=== PATIENT | male | born 1945 | race Caucasian/White ===

== ENCOUNTER 2019-04-25 15:02 | Inpatient (IN) ==
[2019-04-25] MEDS ORDERED: ZOFRAN IV PRN (16:06)
[2019-04-25] MEDS ORDERED: DUONEB (A & A) INH PRN (16:07)
[2019-04-25] MEDS ORDERED: SALINE LOCK IV FLUID XX ONE (16:32)
--- NOTE | 2019-04-25 16:52 | EKG Report ---
Test Performed on : 04/25/2019 4:26:19 PM Test Reason : STAT Blood Pressure : / mmHG Vent. Rate : 087 BPM Atrial Rate : 277 BPM P-R Int : 000 ms QRS Dur : 072 ms QT Int : 340 ms P-R-T Axes : 000 -52 081 degrees QTc Int : 409 ms Atrial flutter. with variable AV block. Left axis deviation Cannot rule out Anterior infarct , age undetermined Abnormal ECG No previous ECGs available Unconfirmed Result
[2019-04-25 17:28] LABS: BASO# 0.04 X1000 (0.0-0.2); BASO% 0.3 % (0.0-0.8); EOS# 0.56 X1000 (0.0-0.7); EOS% 4.1 % (0.0-10.0); HEMATOCRIT 37.7 % (42.0-52.0); HEMOGLOBIN 12.5 g/dL (14.0-18.0); IMM GRAN# 0.04 X1000 (0.0-0.04); IMM GRAN% 0.3 % (0.0-0.5); LYMPH# 1.74 X1000 (1.2-3.4); LYMPH% 12.8 % (20.5-51.1); MCH 28.2 PG (27-31); MCHC 33.2 g/dL (33-37); MCV 84.9 FL (81-99); MONO# 1.97 X1000 (0.11-0.59); MONO% 14.5 % (1.7-9.3); MPV 9.2 FL (7.4-10.4); PLT 239 X1000 (130-400); RBC 4.44 XMIL (4.7-6.1); RDW 16.3 % (11.5-14.5); WBC 13.55 X1000 (4.8-10.8)
[2019-04-25 17:54] LABS: ESTIMATED GFR > 60
[2019-04-25 17:56] LABS: AGAP 11; ALBUMIN 4.2 g/dL (3.5-5.0); ALKALINE PHOSPHATASE 88 U/L (32-122); BUN 16 mg/dL (8-22); CALCIUM 9.5 mg/dL (8.8-10.2); CHLORIDE 89 mmol/L (98-107); CK PROFILE 78 U/L (24-204); COSMO 261; CREATININE 0.9 mg/dL (0.7-1.2); GLUCOSE 143 mg/dL (70-104); GOT 11 U/L (10-34); GPT 11 U/L (10-44); MAGNESIUM 1.7 mg/dL (1.5-2.7); POTASSIUM 4.9 mmol/L (3.5-5.1); SODIUM 128 mmol/L (136-145); TCO2 29 mmol/L (25-35); TOTAL PROTEIN 7.5 g/dL (6.3-8.3)
--- NOTE | 2019-04-25 18:48 | HISTORY AND PHYSICAL ---
ADDENDUM: CHIEF COMPLAINT: Shortness of breath. Patient seen and examined by myself. Full note dictated and discussed with nurse practitioner. Patient was a direct admit from his primary care office. The patient is noted to have a low sodium. Apparently, he has a heavy alcohol use history. He is also on Zyprexa which can drop his sodium, as well as Lasix. We will admit him to the hospital. We will begin his workup. We will hold his Zyprexa. Continue Lasix as he is having some swelling. We will treat him for his constipation and will follow. Please see full note. cc: Dmitri Ludwig MD
[2019-04-25] MEDS: DUONEB (A & A) INH SCH ×2 (19:08→22:58)
--- NOTE | 2019-04-25 19:11 | HISTORY AND PHYSICAL ---
PRIMARY CARE PHYSICIAN: Dr. Diggs. NOVELTY CHAIN MAKER: Dr. Fernando Rodrigues. CHIEF COMPLAINT: Generalized weakness and body aches and wheezing. HISTORY OF PRESENT ILLNESS: This is a 73-year-old gentleman with a history of insulin-dependent diabetes mellitus, COPD, hypothyroid and congestive heart failure. He presents as a direct admit from Dr. Rodrigues's office complaining of about 2 weeks of increasing shortness of breath with activity, increasing generalized weakness and frequent falls. He states that his legs are weak, and when he stands, it just feels like they are not going to hold his body up secondary to pain. This has been an ongoing problem, although he feels like the body aches have exacerbated. He does state that over the last 2 to 3 days he has developed a cough that has become productive over the last 24 hours, and secretions have gone from clear to thick white. He does report a weight gain, although he is not clear on how many pounds. He just knows that "I weigh more now because I am blown up." PAST MEDICAL HISTORY: Insulin-dependent diabetes mellitus, hypertension, COPD, gastroesophageal reflux disease with Chen esophagus, hypothyroidism, BPH, congestive heart failure. SOCIAL HISTORY: He is . Lives with his . He does not smoke. He drinks beers daily, around 2 to 4 daily along with Bacardi at intervals. He denies any illicit drug use. ALLERGIES: No known drug allergies. HOME MEDICATIONS: A list will be obtained by the nursing staff and once verified, will be restarted as appropriate. REVIEW OF SYSTEMS: Discussed with the patient with pertinent positives as stated in the HPI. He denies any syncope or dizziness, any chest pain or palpitations, any PND, any nausea, vomiting, diarrhea, constipation, black or bloody vomitus or stools, any hematuria or dysuria. PHYSICAL EXAMINATION: GENERAL: This is a 73-year-old gentleman who is sitting up in the bed in no distress. VITAL SIGNS: Blood pressure is 152/54 with a heart rate of 90. Respirations are 20, temperature is 99.6 oral with room air saturations 97%. EYES: Pupils are equal, round, reactive to light. EOMs are intact. Sclerae anicteric. HEENT: Head is normocephalic, atraumatic. Mucous membranes are moist. NECK: Supple with trachea midline. CARDIOVASCULAR: Irregularly irregular rate and rhythm. S1 and S2 are appreciated. He has bilateral pitting edema up to about mid thigh with peripheral pulses palpable x4 extremities. MUSCULOSKELETAL: He does have chronic back and leg pain. PULMONARY: Breath sounds. He has wheezes scattered throughout with prolonged expiration. Chest rises and falls symmetrically with respiration. Chest wall is nontender to palpation. He does have bilateral crackles noted in the bases. GASTROINTESTINAL: Abdomen is large, soft, nondistended, nontender with bowel sounds in all 4 quadrants. : He has no CVA or suprapubic tenderness. NEUROLOGIC: He is alert oriented x3. SKIN: Warm and dry. LABS: WBC is 13.5 with hemoglobin 12.5, hematocrit 37.7, and platelets of 239. Sodium is 128, potassium 4.9, BUN 16, creatinine 0.9 with a glucose of 143. Troponin is negative with a CPK of 78. ASSESSMENT AND PLAN: 1. Congestive heart failure exacerbation. Will give Lasix 40 mg b.i.d., monitor strict I O, daily weights. Will identify his home medications. 2. Atrial fibrillation/flutter. This is chronic. The patient is on no anticoagulation at present due to frequent falls. He is followed by Dr. Fernando Rodrigues. We will identify his home medications and continue. At present, rate is controlled. 3. Hyponatremia. 4. Insulin-dependent diabetes mellitus. Pattern blood glucose with sliding scale insulin. 5. Hypothyroid. Will check a TSH, identify his home medication. 6. Chronic obstructive pulmonary disease. We will give DuoNeb every 4 hours and every 2 hours p.r.n. Give supplemental oxygen as needed. 7. Leukocytosis. This could very well be secondary to pneumonia, as his symptoms have had progressed over the last few days. We will get a PA and lateral chest x-ray, get blood cultures. In the setting of leukocytosis with symptoms and a fever, will start azithromycin and Rocephin, and further antibiotics will be culture driven. 8. Gastroesophageal reflux disease. We will identify his home proton pump inhibitor and continue. 9. History of benign prostatic hypertrophy. Continue his Flomax. 10. Chronic back pain. We will continue his [place] every 6 hours p.r.n. 11. Daily alcohol use and abuse. We will monitor for any signs of withdrawal. He does take Ativan 1 mg p.o. 3 times a day. We will continue this and monitor. 12. Further treatments pending hospital course. Dictated by DOREEN Peterson for Dmitri Ludwig MD cc: DOREEN Peterson MD
[2019-04-25] MEDS: HUMALOG (PARKWAY) SUBQ SCH (20:53)
[2019-04-25] MEDS: LASIX IV SCH (20:56)
[2019-04-25] MEDS: ROCEPHIN 1 GM in NS 50 ML IV SCH (20:56)
[2019-04-25] MEDS: ATIVAN PO SCH (20:57)
[2019-04-26] MEDS: TYLENOL PO PRN ×2 (00:35→18:11)
[2019-04-26] MEDS: ZITHROMAX PO SCH ×2 (00:35→09:06)
[2019-04-26] MEDS: DUONEB (A & A) INH SCH ×6 (03:04→23:07)
[2019-04-26 05:58] LABS: BASO# 0.03 X1000 (0.0-0.2); BASO% 0.3 % (0.0-0.8); EOS% 4.4 % (0.0-10.0); HEMATOCRIT 37.4 % (42.0-52.0); HEMOGLOBIN 12.2 g/dL (14.0-18.0); IMM GRAN# 0.04 X1000 (0.0-0.04); IMM GRAN% 0.4 % (0.0-0.5); LYMPH# 2.13 X1000 (1.2-3.4); LYMPH% 18.7 % (20.5-51.1); MCH 27.7 PG (27-31); MCHC 32.6 g/dL (33-37); MPV 9.1 FL (7.4-10.4); NEUT# 6.32 X1000 (1.4-6.5); NEUT% 55.2 % (42.2-75.2); PLT 211 X1000 (130-400); RDW 16.4 % (11.5-14.5); WBC 11.42 X1000 (4.8-10.8)
[2019-04-26 06:01] LABS: BASO 1 % (0-1); EOS 6 % (1-10); LYMPHS 20 % (21-51); MONO 18 % (1-9); SEGS 55 % (42-75)
[2019-04-26 06:05] LABS: AGAP 12; ALBUMIN 3.8 g/dL (3.5-5.0); ALKALINE PHOSPHATASE 74 U/L (32-122); BUN 15 mg/dL (8-22); CALCIUM 9.2 mg/dL (8.8-10.2); CHLORIDE 93 mmol/L (98-107); COSMO 272; CREATININE 0.9 mg/dL (0.7-1.2); ESTIMATED GFR > 60; GLUCOSE 147 mg/dL (70-104); GOT 10 U/L (10-34); GPT 11 U/L (10-44); POTASSIUM 4.2 mmol/L (3.5-5.1); SODIUM 134 mmol/L (136-145); TCO2 29 mmol/L (25-35)
[2019-04-26] MEDS: HUMALOG (PARKWAY) SUBQ SCH ×4 (06:20→20:51)
[2019-04-26] MEDS: LASIX IV SCH ×2 (06:23→18:02)
--- NOTE | 2019-04-26 07:35 | Diag Imaging Result Doc PS360 ---
EXAM: CHEST-PORTABLE - 04/26/2019 HISTORY: PNA TECHNIQUE: Portable chest COMPARISON: 02/23/2019 FINDINGS: Heart size is normal. There is mild prominence of interstitial markings, and there is mild peribronchial cuffing. The possibility of bronchitis and/or interstitial pneumonitis cannot be excluded. There is no dense consolidation, pleural effusion, or pneumothorax identified. IMPRESSION: Possible bronchitis and/or interstitial pneumonitis. No discrete focal pneumonia. Electronically signed by Nas Lerner 04/26/2019 7:33 AM
--- NOTE | 2019-04-26 07:58 | EKG Report ---
Test Performed on : 04/26/2019 06:01:58 AM Test Reason : CHF, dyspnea Blood Pressure : / mmHG Vent. Rate : 083 BPM Atrial Rate : 066 BPM P-R Int : 000 ms QRS Dur : 084 ms QT Int : 368 ms P-R-T Axes : 000 -52 061 degrees QTc Int : 432 ms Atrial fibrillation. Left axis deviation Inferior infarct (cited on or before 25-APR-2019) Abnormal ECG When compared with ECG of 26-APR-2019 06:01, (Unconfirmed) Nonspecific T wave abnormality now evident in Inferior leads Unconfirmed Result
[2019-04-26] MEDS ORDERED: SYNTHROID PO SCH (09:00)
[2019-04-26] MEDS: BENICAR PO SCH (09:06)
[2019-04-26] MEDS: FLEXERIL PO SCH (09:06)
[2019-04-26] MEDS: ALLEGRA PO SCH (09:06)
[2019-04-26] MEDS: CELEXA PO SCH (09:07)
[2019-04-26] MEDS: ATIVAN PO SCH ×3 (09:07→20:47)
[2019-04-26] MEDS: FLOMAX PO SCH (09:07)
[2019-04-26] MEDS: ADALAT CC PO SCH (09:07)
[2019-04-26] MEDS: SYNTHROID PO SCH ×2 (09:07)
[2019-04-26] MEDS: PRILOSEC PO SCH (09:08)
[2019-04-26] MEDS: LEVEMIR INSULIN *HA INJ SCH ×2 (09:08→20:52)
[2019-04-26] MEDS ORDERED: MIRALAX PO ONE (16:36)
[2019-04-26] MEDS ORDERED: AMITIZA PO SCH (16:45)
[2019-04-26] MEDS: ROCEPHIN 1 GM in NS 50 ML IV SCH (18:02)
[2019-04-26] MEDS ORDERED: NORCO-5 PO PRN (18:25)
--- NOTE | 2019-04-26 19:51 | PROGRESS NOTE ---
DATE: 04/26/2019 SUBJECTIVE: Patient notes he is having right leg pain, right side pain although this has been going on for several weeks, not really changed. Denies any fevers or chills. PHYSICAL EXAMINATION: Vital Signs: Temperature 97.9, pulse 101, respiratory rate 18, and BP 151/71. General: Patient is in no current respiratory distress. He is awake, alert, and oriented. HEENT: Normocephalic. Neck: Supple. Cardiovascular: Regular rate. Lungs: Chest clear and nonlabored. Abdomen: Soft. Extremities: Moves all extremities. Neurologic: No changes. ASSESSMENT: 1. Congestive heart failure. Continue Lasix today, and then hopefully can transition over to p.o. Lasix and possibly home tomorrow. 2. Atrial fibrillation and atrial flutter, chronic. 3. Hyponatremia. Sodium is actually improved at 134. 4. Insulin-dependent diabetes. 5. Hypothyroidism. 6. COPD, stable. Continue DuoNeb nebs. PLAN: Overall, patient has improved. Hopefully, he will continue to improve and possibly even discharge home in the next 1 to 2 days. cc: Dmitri Ludwig MD
[2019-04-26] MEDS ORDERED: AMBIEN PO SCH (21:00)
[2019-04-27] MEDS: DUONEB (A & A) INH SCH ×2 (02:58→08:03)
[2019-04-27] MEDS: LASIX IV SCH (05:40)
[2019-04-27] MEDS: SYNTHROID PO SCH ×4 (05:40→06:38)
[2019-04-27] MEDS: PRILOSEC PO SCH (06:33)
[2019-04-27] MEDS: HUMALOG (PARKWAY) SUBQ SCH ×2 (06:35→10:37)
[2019-04-27 07:31] VITALS: BP 127/68
[2019-04-27] MEDS ORDERED: AMITIZA PO SCH (08:00)
[2019-04-27] MEDS: CELEXA PO SCH (08:37)
[2019-04-27] MEDS: FLEXERIL PO SCH (08:38)
[2019-04-27] MEDS: ADALAT CC PO SCH (08:38)
[2019-04-27] MEDS: ZITHROMAX PO SCH (08:38)
[2019-04-27] MEDS: FLOMAX PO SCH (08:38)
[2019-04-27] MEDS: BENICAR PO SCH (08:38)
[2019-04-27] MEDS: ALLEGRA PO SCH (08:38)
[2019-04-27] MEDS: ATIVAN PO SCH (08:39)
[2019-04-27] MEDS: LEVEMIR INSULIN *HA INJ SCH (08:39)
[2019-04-27] MEDS ORDERED: MIRALAX PO SCH (09:00)
[2019-04-27] MEDS ORDERED: ZYPREXA PO SCH (09:00)
[2019-04-27] MEDS ORDERED: LASIX PO SCH (09:00)
--- NOTE | 2019-04-28 03:36 | DISCHARGE SUMMARY ---
ADMISSION DATE: 04/25/2019 DISCHARGE DATE: 04/27/2019 DISCHARGE DIAGNOSIS: 1. Chronic right-sided and right hip pain. 2. Congestive heart failure with mild exacerbation, improved. 3. Atrial fibrillation, chronic. 4. Insulin-dependent diabetes. 5. Hyponatremia, improved. 6. Hypothyroidism. 7. Leukocytosis. 8. Probable pneumonia. CONSULTATIONS: None. PROCEDURES: None. BRIEF HOSPITAL COURSE: Patient is a 73-year-old male who has a history of chronic back and hip pain. Presented to the hospital increased cough, congestion, increased swelling, increased edema in his lower extremities. He was treated for congestive heart failure exacerbation. It was unclear as to whether he had pneumonia. Therefore, he was placed on antibiotics. He continued to improve. On discharge she is awake, alert. He is in no distress. He is afebrile. He is still having right hip and right-sided pain. DISPOSITION: We discussed with patient that he will be discharged home as his congestive heart failure and pneumonia both have improved. We will continue antibiotics and Lasix at home, prescriptions for both were given. Discussed with patient that he needs to follow up with primary care and possibly Orthopedics regarding his hip pain. DISCHARGE MEDICATIONS: Lasix 40 mg twice daily. Omnicef twice daily for 6 days. Azithromycin 250 daily for 3 days. Otherwise, no changes on his chronic home medications. cc: Dmitri Ludwig MD
== END 2019-04-27 11:42 | disposition home or self-care (01) | DRG 291 ==
LOC: P.DIRADM 15:02 → P.MEDSURG 15:49
PROVIDERS: ATTEND Family Medicine
CPT/HCPCS: 71010; 71045; 80053; 82550; 82948; 83735; 84443; 84484; 85025; 87040; 93005; 94640; 94761; 94799; A9270; J0696; J1815; J1940; XXXXX

== ENCOUNTER 2019-06-07 16:30 | Inpatient (IN) ==
--- NOTE | 2019-06-07 16:48 | PROVIDER DOCUMENTATION ---
HPI-General Adult - General Chief Complaint: Low Blood Sugar Stated Complaint: HYPOGYLCEMIA Time Seen by Provider: 06/07/19 16:45 Source: patient Allergies/Adverse Reactions: Patient Allergies Allergy/AdvReac Type Severity Reaction Status Date / Time No Known Allergies Allergy Verified 02/23/19 16:48 Home Medications: Home Medication List Medication Instructions Recorded Confirmed Last Taken Type Citalopram [Celexa] 1 tab PO DAILY 06/14/15 04/25/19 04/25/19 08:00 History Cyclobenzaprine HCl [Amrix] 15 mg PO DAILY 06/14/15 04/25/19 Unknown History Cyclobenzaprine [Flexeril] 10 mg PO DAILY 06/14/15 04/25/19 04/25/19 12:00 History Fexofenadine [Anna] 1 tab PO DAILY 06/14/15 04/25/19 04/25/19 08:00 History Hydrocodone/Acetaminophen [[place] 1 tab PO Q6HR PRN 06/14/15 04/25/19 04/24/19 08:00 History 5-325 Tablet] Insulin Detemir [Levemir Flextouch] 50 unit INJ BID 06/14/15 04/25/19 04/25/19 08:00 History Levothyroxine [Synthroid] 125 microgm PO DAILY 06/14/15 04/25/19 04/24/19 08:00 History Lorazepam [Ativan] 3 tab PO TID 06/14/15 04/25/19 04/25/19 21:14 History Lubiprostone [Amitiza] 24 mcg PO DAILY 06/14/15 04/26/19 1 Day Ago History ~06/13/15 Nifedipine [Procardia Xl] 60 mg PO DAILY 06/14/15 04/25/19 04/25/19 08:00 History Olanzapine [Zyprexa] 1 tab PO DAILY 06/14/15 04/25/19 04/23/19 08:00 History Olmesartan Medoxomil [Benicar] 1 tab PO DAILY 06/14/15 04/25/19 04/24/19 08:00 History Omeprazole [Prilosec] 20 mg PO DAILY 06/14/15 04/25/19 04/25/19 08:00 History Tamsulosin [Flomax] 0.4 mg PO DAILY 06/14/15 04/25/19 04/25/19 08:00 History Zolpidem [Ambien] 10 mg PO QHS 06/14/15 04/25/19 04/24/19 21:00 History Albuterol [Proventil] 4 mg PO Q4HR PRN #1 inhaler 06/16/15 04/25/19 04/24/19 14:00 Rx Prednisone 20 mg PO DAILY #3 tablet 06/16/15 04/25/19 04/25/19 21:00 Rx Azithromycin [Zithromax] 250 mg PO DAILY #4 tab 04/27/19 Unknown Rx CefDINIR [Omnicef] 300 mg PO BID #20 cap 04/27/19 Unknown Rx Furosemide [Lasix] 40 mg PO BID #60 tab 04/27/19 Unknown Rx - History of Present Illness -Gen Adult Nature of Presenting Problems: 73 YOM PRESENTS AFTER SYNCOPAL EPISODE WHILE PLAYING CARDS. UPON EMS ARRIVAL BG WAS NOTED TO BE 27. HE DOES HAVE A HX OF DM AND IS ON TOUJEO FOR DM. HE DENIES CP, FEVER, CHILLS, N/V/D. HE NOW REPORTS HE FEELS NORMAL Onset/Duration: reports: just prior to arrival Timing: reports: improving Context/Activities at Onset: reports: none Modifying Factors: improves with: eating Associated Symptoms: reports: diaphoresis (DURING EPISODE) Similar Symptoms Previously?: Yes Recently seen or treated by another doctor?: No - Diabetes Related Context Context: reports: low blood sugar Review of Systems - Adult - REVIEW OF SYSTEMS - ADULT Constitutional: reports: no symptoms reported. denies: see HPI, chills, fever, fatique, night sweats, weight gain, weight loss, other Eyes: reports: no symptoms reported. denies: see HPI, discharge, dry eyes, decreased vision, blurred vision, double vision, eye pain, redness, other Ears, Nose, Mouth & Throat: reports: no symptoms reported. denies: see HPI, ear discharge, ear pain, hearing loss, tinnitus, epistaxis, sinus problem, nose pain, loose teeth, mouth/dental pain, mouth swelling, hoarseness, throat pain, throat swelling, other Cardiovascular: reports: no symptoms reported. denies: see HPI, chest pain, edema, heart murmur, irregular heart rate, orthopnea, palpitations, poor circulation, PND, syncope, other Respiratory: reports: no symptoms reported. denies: see HPI, chronic cough, cough, dyspnea on exertion, excessive sputum production, hemoptysis, pleurisy, shortness of breath, wheezing, other Gastrointestinal: reports: no symptoms reported. denies: see HPI, abdominal jer n, hematemesis, constipation, diarrhea, difficulty swallowing, frequent heartburn, nausea, poor appetite, rectal bleeding, vomiting, other Genitourinary: reports: no symptoms reported. denies: see HPI, dysuria, discharge, frequency, flank pain, frequent UTI's, hematuria, hesitency, incontinence, urinary retention, urgency, other Musculoskeletal: reports: no symptoms reported. denies: see HPI, bone pain, back pain, frequent leg cramps, joint pain, joint swelling, muscle aches, muscle weakness, neck pain, other Integumentary: reports: no symptoms reported. denies: see HPI, hives, hair loss, itching, mole changes, nail changes, rash, skin sores/ulcer, skin thickening, other Neurological: reports: syncope (MACHINE SET UP). denies: no symptoms reported, see HPI, ataxia, dizziness/vertigo, headache/migraines, loss of balance, numbness, paresthesia, seizure, slurred speech, tremors, other Psychiatric: reports: no symptoms reported. denies: see HPI, anxiety, anti- depressant use, alcohol/drug dependence, depression, emotional problems, insomnia, panic attacks, suicidal thoughts, other Endocrine: reports: other (LOW BG PER EMS). denies: no symptoms reported, see HPI, change in skin pigment, excessive sweating, goiter, cold intolerance, heat intolerance, increased hunger, increased thirst, polyuria Hematologic/Lymphatic: reports: no symptoms reported. denies: see HPI, blood clots, easy bruising, low blood count, lymphedema, prolonged bleeding, swollen lymph nodes, transfusions, other Allergic/Immunologic: reports: no symptoms reported. denies: see HPI, allergic reactions, allergic rhinitis, asthma, eczema, food allergy, frequent infections, hay fever, hives, positive PPD, urticaria, other Past History - Adult - PAST MEDICAL HISTORY-ADULT Review of Records: reports: Nursing Assessment Review, Medications Reviewed - FAMILY HISTORY Family History: reviewed, not pertinent Physical Exam-General - PHYSICAL EXAM-ADULT Initial Vital Signs Reviewed: Yes - CONSTITUTIONAL General Appearance: appears well, alert, no apparent distress - EYES Eyes: PERRL/EOMI - HEAD, EARS, NOSE, MOUTH & THROAT HENMT: normocephalic/atraumatic, moist mucous membranes, normal ENT inspection - NECK Neck: non-tender, full range of motion - RESPIRATORY Respiratory: chest non-tender, lungs clear, normal breath sounds - CARDIOVASCULAR Cardiovascular: normal peripheral pulses, regular rate, rhythm - GASTROINTESTINAL (ABDOMEN) Abdominal Exam: normal bowel sounds, non tender, soft - LYMPHATIC Lymphatic: no adenopathy - MUSCULOSKELETAL Back Exam: normal inspection Extremity: normal range of motion, non-tender, normal gait, normal inspection - SKIN Integumentary: normal color, normal turgor, warm/dry - NEUROLOGIC Neurologic: grossly normal - PSYCHIATRIC Psych/Mental Status: normal mood/affect, oriented x 3 Progress - PLAN OF CARE/RESULTS Progress/Plan/Lab Results: Vital Signs - 8 hr 06/07/19 16:33 Temperature 97.5 F L Pulse Rate 62 Respiratory Rate 16 Blood Pressure 175/71 O2 Sat by Pulse Oximetry 92 L Orders Category Date Time Status FSBS [Finger Stick Blood Sugar (ED)] DIRECTED Care 06/07/19 16:46 Ordered Saline Loc NOW Care 06/07/19 16:[address] HEAD/C-SPINE W/O CONTRAST [CT] Stat Exams 06/07/19 16:46 Ordered CBC WITH ELECTRONIC DIFF [HEME] Stat Lab 06/07/19 16:46 Uncollected COMPREHENSIVE METABOLIC PANEL [CHEM] Stat Lab 06/07/19 16:46 Uncollected PROTIME WITH INR [COAG] Stat Lab 06/07/19 16:46 Uncollected PTT [COAG] Stat Lab 06/07/19 16:46 Uncollected EKG [EKG] Stat Ther 06/07/19 16:47 Ordered Result Diagrams: 06/07/19 16:56 06/07/19 16:56 - EKG 1 Time of EKG reading by physician:: 16:57 EKG Read and Signed by:: Zay Strickland EKG Interpretation (*Must complete 3 of following elements*): Abnormal Rate: 55 Rhythm: BS WITH 1ST AV BLOCK WITH PAC - CT/MRI 1 CT Study: Cervical Spine, Head Impression: See EMR Report (EXAM: CT HEAD/C-SPINE W/O CONTRAST 06/07/2019 HISTORY: SYNCOPE TECHNIQUE: This exam was performed using automated exposure control, adjustment of mA or kV according to patient size, and/or use of iterative reconstruction technique. COMMENT: Head: There are calcifications in the internal carotid arteries bilaterally. There are patchy lucencies in the subcortical and periventricular white matter of both hemispheres consistent with chronic microvascular disease. There is no evidence of bleed or abnormal extra- axial fluid collection. The visualized paranasal sinuses are clear. The calvarium is intact. Cervical spine: There is no evidence of acute fracture or subluxation. 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 There is no evidence of prevertebral soft tissue swelling. There is generalized disc space narrowing. Severe facet arthropathy is present at C2-3, C3-4, C4-5, C5-6, and C6-7 on the left and C2-3, C4-5, C5-6 and C6-7 on the left. IMPRESSION: Chr onic microvascular white matter changes. Severe degenerative facet disease bilaterally in the cervical spine. No evidence of acute disease. Electronically signed by Gordo Chacon 06/07/2019 6:17 PM) - CONSULTS/PCP/HOSPITALIST Notification #1 *Consult/PCP/Hospitalist*: DR GRIDER Time Discussed: 20:00 Consult Disposition: Admit Departure - Departure Date of Disposition Decision: 06/07/19 Time of Disposition Decision: 20:00 DIAGNOSIS: Hypoglycemia Disposition: ADMITTED INPATIENT 09 Certified Medical Emergency: Emergent Condition: Stable Referrals and Follow-Ups: Randy Diggs MD [Primary Care Provider] - - Critical Care Note This patient required my direct & personal management of CC.: No Attestation - Physician/ LASHA Attestation Patient care was provided by Advanced Practice Provider:: Yes Advanced Practice Provider:: Cass Garcia Advanced Practice Provider documentation review:: The Mid-level provider documentation, treatment plan and medical decision making was reviewed by the physician who agrees with all treatment and medical decision making by the MLP. The physician spent face to face time with patient:: No Advanced Practice Provider documentation review:: Supervising physician onsite and consulted in the evaluation and care of this patient. The physician did not have a face to face encounter with the patient.
[2019-06-07] MEDS ORDERED: D5 NS 1,000 ML IV ONE (17:05)
[2019-06-07] MEDS ORDERED: D50W SYRINGE IV ONE (17:05)
[2019-06-07 17:26] LABS: BASO# 0.02 X1000 (0.0-0.2); BASO% 0.2 % (0.0-0.8); EOS# 0.28 X1000 (0.0-0.7); EOS% 2.4 % (0.0-10.0); HEMOGLOBIN 13.5 g/dL (14.0-18.0); IMM GRAN# 0.05 X1000 (0.0-0.04); IMM GRAN% 0.4 % (0.0-0.5); LYMPH# 1.82 X1000 (1.2-3.4); LYMPH% 15.7 % (20.5-51.1); MCHC 33.8 g/dL (33-37); MONO# 1.47 X1000 (0.11-0.59); MONO% 12.7 % (1.7-9.3); MPV 8.9 FL (7.4-10.4); NEUT# 7.97 X1000 (1.4-6.5); NEUT% 68.6 % (42.2-75.2); PLT 255 X1000 (130-400); RBC 4.65 XMIL (4.7-6.1); RDW 15.8 % (11.5-14.5); WBC 11.61 X1000 (4.8-10.8)
[2019-06-07 17:33] LABS: INR 0.9; PROTIME 12.9 Seconds (11.0-16.0)
[2019-06-07 17:34] LABS: PTT 26.9 Seconds (22.3-41.8)
[2019-06-07 18:17] LABS: AGAP 12; ALB/GLOB RATIO 1.1; ALBUMIN 4.1 g/dL (3.5-5.0); ALKALINE PHOSPHATASE 92 U/L (32-122); BUN 14 mg/dL (8-22); CALCIUM 8.9 mg/dL (8.8-10.2); CHLORIDE 93 mmol/L (98-107); COSMO 266; ESTIMATED GFR > 60; GLUCOSE 44 mg/dL (70-104); GOT 18 U/L (10-34); GPT 20 U/L (10-44); POTASSIUM 3.7 mmol/L (3.5-5.1); SODIUM 134 mmol/L (136-145); TCO2 29 mmol/L (25-35); TOTAL BILIRUBIN 0.37 mg/dL (0.20-1.00); TOTAL PROTEIN 7.8 g/dL (6.3-8.3)
--- NOTE | 2019-06-07 18:19 | Diag Imaging Result Doc PS360 ---
EXAM: CT HEAD/C-SPINE W/O CONTRAST 06/07/2019 HISTORY: SYNCOPE TECHNIQUE: This exam was performed using automated exposure control, adjustment of mA or kV according to patient size, and/or use of iterative reconstruction technique. COMMENT: Head: There are calcifications in the internal carotid arteries bilaterally. There are patchy lucencies in the subcortical and periventricular white matter of both hemispheres consistent with chronic microvascular disease. There is no evidence of bleed or abnormal extra-axial fluid collection. The visualized paranasal sinuses are clear. The calvarium is intact. Cervical spine: There is no evidence of acute fracture or subluxation. 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 There is no evidence of prevertebral soft tissue swelling. There is generalized disc space narrowing. Severe facet arthropathy is present at C2-3, C3-4, C4-5, C5-6, and C6-7 on the left and C2-3, C4-5, C5-6 and C6-7 on the left. IMPRESSION: Chronic microvascular white matter changes. Severe degenerative facet disease bilaterally in the cervical spine. No evidence of acute disease. Electronically signed by Gordo Chacon 06/07/2019 6:17 PM
--- NOTE | 2019-06-07 20:08 | Diag Imaging Result Doc PS360 ---
EXAM: CHEST-2 VIEWS 06/07/2019 HISTORY: HYPOXIA TECHNIQUE: PA and lateral chest COMMENT: There is no evidence of acute cardiac or pulmonary disease. Compared to 04/26/2019 there has been no significant change. IMPRESSION: No evidence of acute disease. Electronically signed by Gordo Chacon 06/07/2019 8:05 PM
[2019-06-07] MEDS ORDERED: D10W 1,000 ML IV SCH ×2 (20:15→23:16)
--- NOTE | 2019-06-07 21:35 | HISTORY AND PHYSICAL ---
REASON FOR ADMISSION: Syncope 5 hours ago. HISTORY OF PRESENT ILLNESS: Mr. Pink is a 73-year-old man with past medical history type 2 diabetes on insulin. He also has a history of COPD, hypertension, BPH, hypothyroidism, reflux disease, mild alcoholic cirrhosis and heart failure with preserved EF. He comes in today for after passing out while playing cards. Prior to passing out, he became profoundly diaphoretic and very lethargic and slumped on the chair. His reports that she came back 30 minutes and he was still slumped, unresponsive, looked pale, cold and clammy. When the EMS came, they checked his blood sugar. It was 29. They hung a bag of fluid, name unknown per the . She did notice that after a few minutes, the patient started to stir while on the stretcher. When he got to the ER, he finally aroused and came to with no cognitive impairments. The patient says that other than feeling slightly weak, he denies any cardiorespiratory, gastrointestinal, genitourinary, or focal neurological complaints. No arthralgias or rash. No change in the dose of his insulin. His did report that the night before, his blood sugar was 50. The patient has not skipped any meals, but did not take any breakfast this morning. He only had a tomato sandwich a few hours prior to passing out. She denies any antecedent or cardiorespiratory complaints. No leg swelling. No erythema. REVIEW OF SYSTEMS: A 12 system review was performed. Positive findings noted as above. NEW MEDICATIONS: The patient denies any new medications prescribed. ALLERGIES: No allergies. HOME MEDICATIONS: Have not been reconciled. But the patient says he takes 50 units of Toujeo in the morning and 60 units in the evening. FAMILY HISTORY: Of diabetes, but no heart disease. SOCIAL HISTORY: Lives with his . Does not smoke, but drinks 6 beers a day. and patient both deny any symptoms suggestive of withdrawal when he stops drinking for a few days. SURGICAL HISTORY: Was not asked. LABORATORY WORK: White count 7000, H H 13 and 40, platelets 255,000. Essentially unremarkable differential. Sodium 134, potassium 3.7, BUN 14, creatinine 1.0, glucose 44, PTT is normal. Head CT and C-spine shows chronic microvascular white matter changes, severe DJD and facet disease of the cervical spine. PHYSICAL EXAMINATION: VITAL SIGNS: Blood pressure 112/54, heart rate 60, respirations 17. Temperature is 97.4 degrees. He is 92% on room air. GENERAL: He is an elderly, obese, man not in acute distress. AAO x3. Normal mood and affect. HEENT: Head is normocephalic, atraumatic. Eyes, EBONI, EOMI. He is anicteric. Not pale ENT. No sinusitis is noted. NECK: Supple. No JVD or carotid bruit. No thyromegaly. CHEST: Clear when auscultated. Good air entry in both lung ling. CARDIOVASCULAR: First and second heart sounds heard. No gallops and no rubs. Rhythm is regular. ABDOMEN: Protuberant, soft, nontender. No hepatomegaly. Bowel sounds are normal. RECTAL: Deferred at this time. EXTREMITIES: No edema, clubbing or cyanosis. Distal pulses volume symmetrical, regular, with good volume. NEUROLOGICAL: No gross focal deficits. SKIN: Intact. No breakdown, lesion. MUSCULOSKELETAL: Deferred at this time. ASSESSMENT: 1. Hypoglycemia probably secondary long-acting effects of Toujeo and inadequate ingestion of meals. 2. Chronic diastolic heart failure, stable. 3. Chronic obstructive pulmonary disease. 4. Alcoholic cirrhosis. 5. Hypertension. 6. Insulin-dependent type 2 diabetes. 7. Reflux. 8. Benign prostatic hypertrophy. PLAN: I will keep the patient overnight. Started on D10 water drip overnight. We will check blood sugars closely. If less than 80, we will give half an amp of D50 and check in an hour. Check patient's A1c. He reports his last one was 7. I have informed the patient and his that the benefit of achieving an A1c less than 7 do not outweigh the risk of current hyperglycemia. When he is discharged, I recommended that he only take 1 shot of Toujeo which has half-life close to 48 hours once a day during the daytime as opposed to nighttime to avoid nocturnal hypoglycemia. Counseled the patient against drinking which could have two effects. In addition to beta cell destruction, it can also cause alpha cell destruction which is responsible for glucagon secretion which is needed to correct hyperglycemia. Secondly, the patient alcoholic intake can destroy lycopene storage which may be needed when patient becomes hypoglycemic. He understands and we will consider discontinuing this. If the patient's blood sugars are stable, can be discharged on a lower dose of insulin. Follow A1c levels. cc: MD Dr. Dontae Gonzalez
[2019-06-07] MEDS ORDERED: THIAMINE IM ONE (22:48)
[2019-06-07] MEDS ORDERED: ZOFRAN IV PRN (23:16)
[2019-06-07] MEDS ORDERED: TYLENOL PO PRN (23:16)
[2019-06-07] MEDS ORDERED: NITROGLYCERIN SL PRN (23:16)
[2019-06-08 00:02] LABS: HEMOGLOBIN A1C 7.2 % (4.8-6.0)
[2019-06-08] MEDS: COREG PO SCH ×2 (00:06→09:20)
[2019-06-08] MEDS ORDERED: SYNTHROID PO SCH (07:00)
[2019-06-08 07:35] LABS: BASO# 0.02 X1000 (0.0-0.2); BASO% 0.3 % (0.0-0.8); EOS# 0.27 X1000 (0.0-0.7); EOS% 3.8 % (0.0-10.0); HEMATOCRIT 36.8 % (42.0-52.0); HEMOGLOBIN 12.7 g/dL (14.0-18.0); IMM GRAN# 0.02 X1000 (0.0-0.04); IMM GRAN% 0.3 % (0.0-0.5); LYMPH# 1.59 X1000 (1.2-3.4); LYMPH% 22.5 % (20.5-51.1); MCH 29.7 PG (27-31); MCHC 34.5 g/dL (33-37); MCV 86.2 FL (81-99); MONO# 1.02 X1000 (0.11-0.59); MONO% 14.4 % (1.7-9.3); NEUT# 4.15 X1000 (1.4-6.5); NEUT% 58.7 % (42.2-75.2); PLT 388 X1000 (130-400); RBC 4.27 XMIL (4.7-6.1); RDW 16.4 % (11.5-14.5); WBC 7.07 X1000 (4.8-10.8)
--- NOTE | 2019-06-08 07:40 | EKG Report ---
Test Performed on : 06/08/2019 06:47:20 AM Test Reason : Telemetry Rate Change - A-Fib Blood Pressure : / mmHG Vent. Rate : 062 BPM Atrial Rate : 062 BPM P-R Int : 266 ms QRS Dur : 074 ms QT Int : 414 ms P-R-T Axes : 101 -35 060 degrees QTc Int : 420 ms Sinus rhythm. with 1st degree AV block. Left axis deviation Abnormal ECG When compared with ECG of 07-JUN-2019 16:57, (Unconfirmed) premature atrial complexes. are no longer present Confirmed by Timbo Riddle MD ([id number]) on 06/11/2019 11:26:09 AM
[2019-06-08 07:48] VITALS: BP 157/80
--- NOTE | 2019-06-08 07:53 | EKG Report ---
Test Performed on : 06/07/2019 4:57:22 PM Test Reason : LOW BLOOS SUGAR Blood Pressure : / mmHG Vent. Rate : 055 BPM Atrial Rate : 055 BPM P-R Int : 252 ms QRS Dur : 094 ms QT Int : 448 ms P-R-T Axes : 090 -31 064 degrees QTc Int : 428 ms Sinus bradycardia. with 1st degree AV block. with premature atrial complexes. Left axis deviation Abnormal ECG When compared with ECG of 26-APR-2019 06:01, Sinus rhythm. has replaced Atrial fibrillation. Vent. rate has decreased BY 28 BPM Nonspecific T wave abnormality no longer evident in Inferior leads Unconfirmed Result
[2019-06-08] MEDS ORDERED: LACTULOSE PO SCH (09:00)
[2019-06-08] MEDS ORDERED: LASIX PO SCH (09:00)
[2019-06-08] MEDS ORDERED: NORVASC PO SCH (09:00)
[2019-06-08] MEDS ORDERED: THIAMINE IM SCH (09:00)
[2019-06-08] MEDS ORDERED: AMITIZA PO SCH (09:00)
[2019-06-08] MEDS ORDERED: PRILOSEC PO SCH (09:00)
[2019-06-08 09:24] LABS: AGAP 9; BUN 7 mg/dL (8-22); CALCIUM 9.1 mg/dL (8.8-10.2); CHLORIDE 99 mmol/L (98-107); COSMO 274; CREATININE 0.8 mg/dL (0.7-1.2); ESTIMATED GFR > 60; GLUCOSE 139 mg/dL (70-104); SODIUM 137 mmol/L (136-145); TCO2 29 mmol/L (25-35)
--- NOTE | 2019-06-09 19:40 | DISCHARGE SUMMARY ---
ADMISSION DATE: 06/07/2019 DISCHARGE DATE: 06/08/2019 STUDIES: Initial glucose 44, came up with treatment, and was 134 to 199 on the day of discharge. A1c of 7.2. WBC 7, hemoglobin 12.7. Chest x-ray, unremarkable. CT of head and C-spine with arthritis and chronic microvascular changes, but no acute process. DISCHARGE DIAGNOSES: 1. Hypoglycemia. 2. Diabetes mellitus. 3. Chronic obstructive pulmonary disease. 4. Chronic diastolic heart failure. 5. Mild cirrhosis. 6. Hypertension. 7. Gastroesophageal reflux disease. 8. Benign prostatic hypertrophy. HOSPITAL COURSE: The patient was brought in by EMS after a syncopal episode at home. Glucose was markedly low in the field, down to 30. In the 40s initially here. Given D50 and IV containing fluids, and came back up into the 100s. Fluids were stopped on the morning of the day of discharge and he appeared to be maintaining his glucose. Discussed with the patient. His recall of the event is somewhat poor, but he does state that all he had to eat all day was a tomato sandwich, but he had taken his usual dose of 50 of Toujeo that morning and 60 that evening, along with short-acting insulin at mealtime. Suspect patient's hypoglycemia was related to taking his usual doses of insulin, but eating very little. Discussed with patient that he really needs to eat at least a light snack to maintain sugar. The patient checks his sugar frequently as he has one of the new devices that sticks to the skin and can be checked by waiving a device over it. However, he states that he forgot to take it with him when he went to play cards on the night that he had the syncopal episode, so he was not checking his sugar at the time. Workup for other etiologies of syncope was unremarkable. All of his symptoms resolved with improvement in his hypoglycemia, as it was felt that this was the problem and was unlikely to repeat itself as long as patient remembers to eat. Did discuss with patient that if he has nausea, vomiting, or for some other reason cannot eat, then he may need to take less insulin and should keep a close eye on his glucose. The patient expressed understanding. The patient's other chronic medical conditions were stable. DISCHARGE VITALS: Temperature 98.5 degrees, pulse 75, respirations 20, blood pressure 157/80, O2 saturation 98% on room air. DISCHARGE DIET: Diabetic. DISCHARGE MEDICATIONS: Ambien as previously prescribed, Zyprexa as previously prescribed, [place] as previously prescribed, Anna 1 tablet daily, Amitiza 24 mcg b.i.d. as needed, Norvasc 5 mg p.o. b.i.d., Anoro Ellipta inhaler b.i.d., Ativan 1 tablet p.o. t.i.d. as needed, olmesartan 1 tablet daily, carvedilol 6.25 mg b.i.d., Celexa 40 mg p.o. daily, lactulose 50 mg daily, Flomax 0.4 mg p.o. daily, Lasix 60 mg p.o. daily, nitroglycerin 0.4 mg sublingual as needed, omeprazole 20 mg p.o. b.i.d., nifedipine extended release 60 mg p.o. daily, Synthroid 125 mcg p.o. daily, Proventil inhaler q.4 hours as needed, insulin glargine 50 units in the morning and 60 units in the evening, unknown short-acting insulin as previously prescribed. FOLLOWUP AND PLAN: The patient is discharging home on his same dose of insulin, but instructed on the importance of regular meals as a diabetic, especially on as much insulin as he is. Also, discussed that he may have to decrease his insulin if has nausea, vomiting, or for other reason cannot take adequate p.o. Also, emphasized the importance of checking his blood sugar, especially if his insulin or p.o. intake is disrupted for some reason. Follow up with PCP. TIME: Greater than 30 minutes spent arranging discharge and counseling patient.
== END 2019-06-08 13:34 | disposition home or self-care (01) | DRG 644 ==
LOC: SUPCPDRO → ED 16:30 → SUATTDRO 21:52 → 3N 21:52
PROVIDERS: ATTEND Internal Medicine
CPT/HCPCS: 70450; 71020; 71046; 72125; 80048; 80053; 82948; 83036; 85025; 85610; 85730; 93005; 93010; A9270; J7042; XXXXX